=== PATIENT | female | born 1985 | race Caucasian/White ===

== ENCOUNTER 2016-09-04 02:40 | Inpatient (IN) | payer OTHER ==
[~2016-09-04] VITALS: Ht 160 cm; Wt 76.0 kg
[2016-09-04 02:30] VITALS: BP 104/77
[2016-09-04] MEDS ORDERED: AMPICILLIN 2 GM in SODIUM CHLORIDE 0.9% 100 ML IVPB STA (02:43)
[2016-09-04] MEDS ORDERED: OXYTOCIN 30U/ 0.9% NaCL 500ML 500 ML IV ONE (02:43)
[2016-09-04] MEDS ORDERED: D5%-LACTATED RINGERS 1,000 ML IV SCH (02:43)
[2016-09-04] MEDS ORDERED: NEWBORN KIT ONE (02:49)
[2016-09-04] MEDS ORDERED: LIDOCAINE 1%, 20ML ONE (02:49)
[2016-09-04] MEDS ORDERED: MISOPROSTOL 200 MCG TABLET ONE (02:49)
[2016-09-04] MEDS ORDERED: OXYTOCIN 30U/ 0.9% NaCL 500ML 500 ML ONE ×2 (02:49→07:07)
[2016-09-04] MEDS: LACTATED RINGERS 1,000 ML IV SCH ×2 (02:53→07:15)
[2016-09-04] MEDS: AMPICILLIN 1 GM in SODIUM CHLORIDE 0.9% 50 ML IVPB SCH ×2 (03:00→07:00)
[2016-09-04] MEDS ORDERED: TERBUTALINE 1 MG/ML, 1ML IVPush PRN (03:00)
[2016-09-04] MEDS ORDERED: SODIUM CITRATE/CITRIC ACID 30 ML UDC PO PRN (03:00)
[2016-09-04] MEDS ORDERED: FENTANYL PF 100 MCG/2ML IVPush PRN (03:00)
[2016-09-04] MEDS ORDERED: FENTANYL PF 100 MCG/2ML IV PRN (03:00)
[2016-09-04] MEDS ORDERED: CALCIUM CARBONATE 500 MG TAB.CHEW PO PRN ×2 (03:00→05:30)
[2016-09-04] MEDS ORDERED: ONDANSETRON 2MG/ML, 2ML IVPush PRN (03:00)
[2016-09-04] MEDS ORDERED: PLEASE ENTER ALLERGIES MC SCH ×2 (03:00)
[2016-09-04] MEDS ORDERED: ALUMINUM/MAG/SIMETHICONE 30 ML UDC PO PRN (03:00)
[2016-09-04] MEDS ORDERED: METOCLOPRAMIDE 5 MG/ML, 2ML IVPush PRN (03:00)
[2016-09-04] MEDS ORDERED: ONDANSETRON 2MG/ML, 2ML IV PRN (05:30)
[2016-09-04] MEDS ORDERED: ACETAMINOPHEN 325 MG TABLET PO PRN (05:30)
[2016-09-04] MEDS ORDERED: DOCUSATE 100 MG CAPSULE PO PRN (05:30)
[2016-09-04] MEDS ORDERED: MISOPROSTOL 200 MCG TABLET PR PRN (05:30)
[2016-09-04] MEDS ORDERED: METHYLERGONOVINE 0.2 MG/ML IM PRN (05:30)
[2016-09-04] MEDS ORDERED: IBUPROFEN 600 MG TABLET ONE (05:53)
[2016-09-04] MEDS: IBUPROFEN 600 MG TABLET PO PRN ×3 (05:55→21:30)
[2016-09-04] MEDS: OXYTOCIN 30U/ 0.9% NaCL 500ML 500 ML IV SCH ×2 (07:16→15:29)
[2016-09-04 08:15] VITALS: BP 112/68
[2016-09-04] MEDS: PRENATAL VIT/IRON/FA 1 EACH TABLET PO SCH (09:00)
[2016-09-04 12:15] VITALS: BP 103/63
[2016-09-04 16:00] VITALS: BP 120/68
[2016-09-04 21:20] VITALS: BP 113/70
[2016-09-05 00:35] VITALS: BP 104/59
[2016-09-05] MEDS: OXYTOCIN 30U/ 0.9% NaCL 500ML 500 ML IV SCH ×2 (09:38→11:29)
[2016-09-05] MEDS: IBUPROFEN 600 MG TABLET PO PRN (09:50)
[2016-09-05] MEDS: PRENATAL VIT/IRON/FA 1 EACH TABLET PO SCH (09:51)
== END 2016-09-05 15:27 | disposition home or self-care (01) | DRG 774 ==
LOC: LDOP 02:40 → LDIP 02:50 → 2NW 08:06
PROVIDERS: ADMIT Obstetrics & Gynecology; ATTEND Obstetrics & Gynecology
PROC: 10E0XZZ Delivery of Products of Conception, External Approach (ICD-10-PCS; principal; 2016-09-04)
DX: O99.824 Streptococcus B carrier state complicating childbirth (principal); O98.52 Other viral diseases complicating childbirth; B00.89 Other herpesviral infection; O99.344 Other mental disorders complicating childbirth; O99.52 Diseases of the respiratory system complicating childbirth; J45.909 Unspecified asthma, uncomplicated; F32.9 Major depressive disorder, single episode, unspecified; Z3A.38 38 weeks gestation of pregnancy; Z37.0 Single live birth; Z80.9 Family history of malignant neoplasm, unspecified
CPT/HCPCS: 36415; 85025; 86850; 86900; J0290; J2590; J7120

== ENCOUNTER 2016-09-18 05:27 | Emergency (ER) | payer OTHER ==
[~2016-09-18] VITALS: Ht 160 cm; Wt 67.3 kg
[2016-09-18 05:30] VITALS: BP 120/84
[2016-09-18] MEDS ORDERED: DOCU100C8 PO (05:50)
[2016-09-18] MEDS ORDERED: PREN1COM15 PO (05:50)
[2016-09-18] MEDS ORDERED: VALA500T PO (05:50)
== END 2016-09-18 06:20 | disposition home or self-care (01) ==
LOC: ED 06:14
DX: O72.1 Other immediate postpartum hemorrhage (principal)
CPT/HCPCS: 99283

== ENCOUNTER 2019-03-05 09:34 | Outpatient (CLI) | payer OTHER ==
[~2019-03-05 09:34] MED LIST: DOCU100C33 PO; PREN1COM15 PO; VALA500T PO
== END 2019-03-05 23:59 | disposition home or self-care (01) ==
LOC: CFH 09:34
PROVIDERS: ATTEND Nurse Practitioner Family
DX: N64.4 Mastodynia (principal); R59.9 Enlarged lymph nodes, unspecified
CPT/HCPCS: 76642; 76857; 77066; G0279